=== PATIENT | male | born 1995 | race Two or more races ===

== ENCOUNTER 2022-10-29 01:43 | Emergency (ER) | payer MEDICAID, OTHER ==
[~2022-10-29] VITALS: Ht 195.6 cm; Wt 119.0 kg
[2022-10-29] MEDS ORDERED: IBUP800T27 PO (04:20)
[2022-10-29] MEDS ORDERED: AMOX500C2 PO (04:21)
[2022-10-29] MEDS ORDERED: KETOROLAC TROMETH 60MG/2ML VIAL IM ONE (04:30)
[2022-10-29 05:00] VITALS: BP 158/113
== END 2022-10-29 05:03 | disposition home or self-care (01) ==
LOC: ER 01:43
DX: J02.9 Acute pharyngitis, unspecified (principal); F17.210 Nicotine dependence, cigarettes, uncomplicated; Z88.1 Allergy status to other antibiotic agents
CPT/HCPCS: 87070; 87880; 96372; 99283; J1885